=== PATIENT | female | born 1970 | race Caucasian/White ===

== ENCOUNTER → 2021-01-18 | Outpatient (CLI) | payer SELFPAY | LOC: RAD 12:40 | DX: M54.6 Pain in thoracic spine (principal); M47.814 Spondylosis without myelopathy or radiculopathy, thoracic region | CPT/HCPCS: 71111; 72072 ==

== ENCOUNTER → 2021-01-29 | Outpatient (CLI) | payer OTHER | LOC: RAD 10:25 | DX: M54.9 Dorsalgia, unspecified (principal); M51.36 Other intervertebral disc degeneration, lumbar region | CPT/HCPCS: 72110 ==

== ENCOUNTER → 2021-03-08 | Outpatient (CLI) | payer BC, OTHER | LOC: KOH-I 12:17 | DX: M25.561 Pain in right knee (principal); M25.562 Pain in left knee; M25.461 Effusion, right knee | CPT/HCPCS: 73564 ==

== ENCOUNTER → 2021-10-22 | Outpatient (CLI) | payer BC, OTHER | LOC: KOH-I 11:52 | DX: M54.50 Low back pain, unspecified (principal); M46.1 Sacroiliitis, not elsewhere classified | CPT/HCPCS: 72100 ==

== ENCOUNTER → 2022-06-17 | Outpatient (CLI) | payer BC, OTHER ==
[2022-06-17 12:04] LABS: HEMOGLOBIN 14.9 gm/dl (12.3-15.3); RED BLOOD COUNT 4.82 M/UL (4.00-5.10)
[2022-06-17 12:25] LABS: BUN/CREATININE RATIO 24 (0-10)
[2022-06-18 07:12] LABS: VITAMIN D, 25-HYDROXY 34.6 ng/mL (30.0-100.0)
[2022-06-18 09:14] LABS: THYROXINE (T4) 8.7 ug/dL (4.5-12.0)
== END ==
LOC: LAB 11:40
PROVIDERS: Nurse Practitioner Family
DX: Z13.1 Encounter for screening for diabetes mellitus (principal); I10 Essential (primary) hypertension; F41.9 Anxiety disorder, unspecified; F32.A Depression, unspecified; E78.5 Hyperlipidemia, unspecified; R53.83 Other fatigue
CPT/HCPCS: 36415; 80053; 80061; 81001; 82607; 83036; 84436; 84443; 84480; 85025; 85652; 86140